=== PATIENT | male | born 1940 | race Caucasian/White ===

== ENCOUNTER → 2020-01-10 | Outpatient (CLI) | payer MEDICARE ==
[~2020-01-10] MED LIST: IOHEXOL 350 MG/ML 100 ML VIAL. IV ONE
[2020-01-10 09:19] LABS: CREATININE 1.1 mg/dL (0.7-1.3); GFR 64.2
--- NOTE | 2020-01-10 15:02 | RAD ---
CTA of the abdomen and pelvis without comparison for right lower quadrant abdominal pain. TECHNIQUE: Contiguous helical axial CT images are obtained through the abdomen and pelvis following a ministration of IV contrast in the arterial phase. Sagittal and coronal MIPS are evaluated as are 3-D volume rendered images of the vasculature. Nonvascular findings: Some atelectasis in the lung bases. 1.3 cm hypodense lesion in the left lobe of liver near the apex, on series 3 image #19. This is incompletely characterized on this single phase examination. Consider further evaluation with three-phase CT scan or MRI of the abdomen. Gallbladder is normal. Pancreas, spleen, left adrenal glands are normal. There is a 9 mm benign adrenal adenoma involving the lateral limb of the right adrenal gland. No suspicious abnormalities of the left kidney. No suspicious mesenteric or retroperitoneal adenopathy. No free or loculated fluid collections. Urinary bladder is only partially fluid distended but is otherwise unremarkable. Extensive postsurgical changes of prior prostatectomy are noted. There are numerous sigmoid diverticula, however there is no evidence of sigmoid diverticulitis. No gross abnormalities of visualized large or small bowel are identified. Degenerative changes are seen throughout the lumbar spine. No suspicious osteoblastic or osteolytic bone lesions are evident. Vascular findings: The aorta is nonaneurysmal. There is mild multifocal atherosclerosis involving aorta, iliac arteries, and mesenteric vessels. The celiac artery, superior mesenteric artery, and inferior mesenteric arteries are all patent with no significant stenoses. There are single bilateral renal arteries, and there is mild atherosclerosis at the origin of the left renal artery. On the right, there is moderate calcified and soft atherosclerosis at the origin of the right renal artery producing mild stenosis, however there appears to be circumferential mural thickening throughout the mid segment of the right renal artery which appears to result in at least moderate stenosis. Iliofemoral arteries are patent. IMPRESSION: 1. 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 2. Mild multifocal atherosclerosis elsewhere with no other hemodynamically significant stenoses identified. No aneurysms. 3. 1.3 cm hypodense lesion within the left lobe of liver anteriorly and superiorly, incompletely characterized on this examination. Consider three-phase CT scan of the abdomen or MRI of the abdomen for definitive assessment. PQRS Compliance Statement: One or more of the following individualized dose reduction techniques were utilized for this examination: 1. Automated exposure control 2. Adjustment of the mA and/or kV according to patient size 3. Use of iterative reconstruction technique Electronically signed by: Bernardo Lee MD (01/10/2020 2:59 PM) [id number]
== END | disposition home or self-care (01) ==
LOC: CT 08:41
PROVIDERS: ATTEND Internal Medicine Gastroenterology
DX: K57.30 Diverticulosis of large intestine without perforation or abscess without bleeding (principal); I70.1 Atherosclerosis of renal artery; J98.11 Atelectasis; K76.9 Liver disease, unspecified; D35.00 Benign neoplasm of unspecified adrenal gland; Z90.79 Acquired absence of other genital organ(s)
CPT/HCPCS: 36415; 74174; 82565; 84520; Q9967

== ENCOUNTER → 2020-01-29 | Outpatient (CLI) | payer MEDICARE ==
[~2020-01-29] MED LIST changes: +GADOTERATE 7.5 MMOL/15ML VIAL. IVP ONE; -IOHEXOL 350 MG/ML 100 ML VIAL. IV ONE
--- NOTE | 2020-01-29 13:09 | RAD ---
MRI of the liver without and with contrast 01/29/2020 CLINICAL HISTORY: Low-attenuation lesion seen involving the liver on a recent CT scan. MRI was recommended for further evaluation. TECHNIQUE: Unenhanced T2-weighted axial and coronal, in and out of phase T1-weighted axial, diffusion-weighted axial and fat saturated T2-weighted axial and coronal images of the abdomen were obtained. After the intravenous administration of 16 cc of DOTAREM enhanced fat saturated T1-weighted axial images of the abdomen were obtained. Additionally delayed fat saturated T1-weighted axial and T1-weighted coronal images of the abdomen were obtained. FINDINGS: Comparison is made to patient's CTA of the abdomen and pelvis dated 01/10/2020. Images from the study are degraded by patient motion. On the T2-weighted images a somewhat oval-shaped high signal intensity lesion is seen involving the left lobe of the liver which corresponds to the abnormality seen on the patient's CT scan. This demonstrates decreased signal intensity on the T1-weighted images. It does not enhance with contrast. It is consistent with a hepatic cyst. A smaller hepatic cyst is seen more inferiorly within the left lobe of the liver. This measures 4 mm in greatest diameter. No additional abnormality of the liver is seen. The spleen and left adrenal gland are within normal limits. Mild fullness of the right adrenal gland is again seen. Rounded high signal intensity lesions are seen scattered throughout both kidneys on the T2-weighted images. These measure 3 mm to 2.1 cm in size. They likely represent cysts. No further imaging workup is recommended. Small rounded high signal intensity lesions are seen involving the tail of the pancreas which measure 3 to 5 mm in size. These likely represent cysts. The abdominal aorta tapers normally. No free fluid is seen within the abdomen. The gallbladder is well-distended. There is no evidence of bowel obstruction. The marrow signal of the visualized bony structures is within normal limits. IMPRESSION: A 1.4 cm hepatic cyst is seen within the left lobe of the liver which corresponds to the abnormality seen on the patient's recent CT scan. No acute abnormality is seen. Electronically signed by: Luis Antonio Xiong MD (01/29/2020 1:06 PM) [id number]
== END ==
LOC: MRI 10:08
PROVIDERS: ATTEND Internal Medicine Gastroenterology
DX: K76.89 Other specified diseases of liver (principal); R93.1 Abnormal findings on diagnostic imaging of heart and coronary circulation
CPT/HCPCS: 74183; A9575

== ENCOUNTER 2020-05-29 01:45 | Emergency (ER) | payer MEDICARE ==
[~2020-05-29] VITALS: Ht 154.9 cm; Wt 79.1 kg
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
[2020-05-29] MEDS ORDERED: DIPH,PERTUSS(ACELL),TET VAC/PF 0.5 ML SYRINGE. VAX IM ONE (03:00)
[2020-05-29] MEDS ORDERED: LIDOCAINE 2%/EPI 1:100,000 20 ML VIAL. INJ ONE (04:00)
[2020-05-29] MEDS ORDERED: OXYC1TAB15 PO (04:02)
[2020-05-29] MEDS ORDERED: oxyCODONE/APAP 5/325 1 TAB TABLET PO ONE (04:30)
[2020-05-29 05:00] VITALS: BP 116/64
== END 2020-05-29 05:40 | disposition home or self-care (01) ==
LOC: ER 01:45
DX: S01.01XA Laceration without foreign body of scalp, initial encounter (principal); Z87.891 Personal history of nicotine dependence; Z86.73 Personal history of transient ischemic attack (TIA), and cerebral infarction without residual deficits; Z88.0 Allergy status to penicillin; Z88.6 Allergy status to analgesic agent; W06.XXXA Fall from bed, initial encounter; Y93.89 Activity, other specified; Y92.89 Other specified places as the place of occurrence of the external cause; Y99.8 Other external cause status
CPT/HCPCS: 12002; 70450; 72125; 99285; J3490